=== PATIENT | male | born 1940 | race Caucasian/White ===

== ENCOUNTER 2017-08-27 04:21 | Emergency (ER) | END 2017-08-27 08:10 | disposition home or self-care (01) ==

== ENCOUNTER 2017-09-25 06:27 | Emergency (ER) | END 2017-09-25 08:40 | disposition left against medical advice (07) ==

== ENCOUNTER 2017-10-12 01:47 | Emergency (ER) | END 2017-10-12 05:38 | disposition home or self-care (01) ==

== ENCOUNTER 2018-09-22 21:59 | Emergency (ER) | payer OTHER, MEDICAID ==
[~2018-09-22] VITALS: Wt 62.2 kg
[~2018-09-22 21:59] MED LIST: ATOR20TA38 PO; CEPH-443 PO; FAMO-96 PO; GLIP10TA14 PO; HYDR-4011 PO; IBUP-1542 PO; LOSA25TA12 PO; METF500T24 PO; METO-448 PO; SULF1TAB31 PO
[2018-09-22] MEDS ORDERED: SODIUM CHLORIDE 0.9% 1L BAG IV* STA (23:32)
--- NOTE | 2018-09-22 23:48 | ERD ---
ER Documentation Chief Complaint Chief Complaint COUGH, FEVER X'S 3 DAYS HPI 77-year-old man complains of cough and nasal congestion rhinorrhea times 2 days with tactile fever as well. He has had no chest pain or shortness of breath, no rash, no vomiting or diarrhea, no headache or blurry vision. Patient has a history of esophageal cancer treated 2 years ago with chemotherapy. ROS All systems reviewed and are negative except as per history of present illness. Medications Home Meds Active Scripts Albuterol Sulfate* (Proair HFA*) 8.5 Gm Hfa.aer.ad, 2 PUFF INH Q6H PRN for WHEEZING AND SOB, #1 INHALER Prov:ROSE MITCHELL MD 09/23/18 Ibuprofen* (Motrin*) 400 Mg Tab, 400 MG PO Q8 PRN for FEVER, #30 TAB Prov:ROSE MITCHELL MD 09/23/18 Sulfamethoxazole/Trimethoprim* (Bactrim Ds* Tablet) 1 Each Tablet, 1 TAB PO BID, #19 TAB Prov:SHANT ROY NP 10/12/17 Ibuprofen* (Motrin*) 600 Mg Tab, 600 MG PO Q6H PRN for PAIN AND OR ELEVATED TEMP, #30 TAB Prov:SHANT ROY NP 10/12/17 Cephalexin* (Keflex*) 500 Mg Capsule, 500 MG PO QID for 10 Days, #39 CAP Prov:SHANT ROY NP 10/12/17 Famotidine* (Pepcid*) 20 Mg Tablet, 20 MG PO BID for 7 Days, TAB Prov:VERENA BETANCOURT MD 08/27/17 Reported Medications Hydrocodone/Acetaminophen ([place] 5-325 Tablet) 1 Each Tablet, 1 EACH PO Q6 PRN for PAIN LEVEL 6-10, TAB 08/27/17 Metoprolol Tartrate* (Lopressor*) 25 Mg Tab, 12.5 MG PO BID, #60 TAB TAKE 0.5 TABLET BY MOUTH 2 TIMES A DAY 08/27/17 Metformin Hcl* (Metformin Hcl*) 500 Mg Tablet, 500 MG PO WITH BREAKFAST DINNE, #60 TAB 08/27/17 Losartan Potassium* (Losartan Potassium*) 25 Mg Tablet, 25 MG PO QPM, TAB 08/27/17 Glipizide* (Glipizide*) 10 Mg Tablet, 10 MG PO AC BREAKFAST DINNER, TAB 08/27/17 Atorvastatin Calcium* (Atorvastatin Calcium*) 20 Mg Tablet, 20 MG PO QHS, #30 TAB 08/27/17 Allergies Allergies: Coded Allergies: No Known Allergy (Unverified , 08/27/17) PMhx/Soc Hypertension, hyperlipidemia, history of esophageal cancer History of Surgery: Yes (AAA(JANUARY 2017 AT [facility])) Anesthesia Reaction: No Hx Neurological Disorder: No Hx Respiratory Disorders: No Hx Cardiac Disorders: Yes (HTN, HYPERLIPIDEMIA, DM) Hx Psychiatric Problems: No Hx Miscellaneous Medical Probl: Yes (ESOPHOGEAL CANCER) Hx Alcohol Use: No Hx Substance Use: No Hx Tobacco Use: Yes (QUIT 15 YEARS AGO) Smoking Status: Former smoker FmHx Family History: No diabetes Physical Exam Vitals Vital Signs Date Temp Pulse Resp B/P (MAP) Pulse Ox O2 O2 Flow FiO2 Time Delivery Rate 09/23/18 96 20 95/65 (75) 97 Room Air 01:50 09/22/18 98.9 23:39 09/22/18 102.4 119 20 124/65 94 22:31 (84) Physical Exam GENERAL: Well-developed, well-nourished, febrile HEENT: Moist mucous membranes, pink conjunctiva, no cervical spine tenderness or step-off deformities, no goiter, no jaundice or icterus, extraocular movements intact without pain. No submandibular induration, and no pharyngeal erythema NEURO: Alert and oriented 3, cranial nerves II through XII intact bilaterally, pupils equal round reactive to light, no focal deficits or facial asymmetry, sensation intact distally Strength 5/5 in upper and lower extremities bilaterally CARDIAC: Tachycardic and regular no murmurs rubs or gallops LUNGS: Clear bilaterally no wheezing crackles or stridor ABDOMEN: Soft nontender, no guarding, no rigidity, no rebound, no psoas sign no obturator sign. Normoactive bowel sounds SKIN: Warm and dry to touch, no abrasions, contusions, or hematomas, no lacerations, no ecchymosis, no target lesions, and without ulcers EXTREMITIES: No clubbing cyanosis or edema, calves are bilaterally symmetrical, no Homans sign, no popliteal cord sign. Distal pulses equal and bilateral PSYCH: Normal affect without agitation or irritability Result Diagram: 3/29/19 2019 3/29/19 2342 Results 24 hrs Laboratory Tests Test 09/22/18 20:19 09/22/18 22:45 09/22/18 23:42 White Blood Count 9.7 10^3/ul Red Blood Count 5.21 10^6/ul Hemoglobin 15.4 g/dl Hematocrit 46.0 % Mean Corpuscular Volume 88.3 fl Mean Corpuscular Hemoglobin 29.6 pg Mean Corpuscular 33.5 g/dl Hemoglobin Concent Red Cell Distribution Width 13.8 % Platelet Count 147 10^3/UL Mean Platelet Volume 11.1 fl Immature Granulocytes % 0.600 % Neutrophils % 82.0 % Lymphocytes % 8.6 % Monocytes % 8.2 % Eosinophils % 0.3 % Basophils % 0.3 % Nucleated Red Blood Cells % 0.0 /100WBC Immature Granulocytes # 0.060 10^3/ul Neutrophils # 8.0 10^3/ul Lymphocytes # 0.8 10^3/ul Monocytes # 0.8 10^3/ul Eosinophils # 0.0 10^3/ul Basophils # 0.0 10^3/ul Nucleated Red Blood Cells # 0.0 10^3/ul Prothrombin Time 13.1 Sec Prothrombin Time Ratio 1.0 INR International 0.98 Normalized Ratio Activated Partial Thromboplast 33.7 Sec Time Lactic Acid Level 1.4 mmol/L Sodium Level 137 mmol/L Potassium Level 4.0 mmol/L Chloride Level 98 mmol/L Carbon Dioxide Level 27 mmol/L Anion Gap 12 Blood Urea Nitrogen 22 mg/dl Creatinine 1.13 mg/dl Est Glomerular Filtrat mL/min Rate mL/min Glucose Level 126 mg/dl Calcium Level 9.8 mg/dl Total Bilirubin 0.5 mg/dl Direct Bilirubin 0.00 mg/dl Indirect Bilirubin 0.5 mg/dl Aspartate Amino Transf (AST/SGOT) 19 IU/L Alanine 16 IU/L Aminotransferase (ALT/SGPT) Alkaline Phosphatase 73 IU/L Troponin I < 0.012 ng/ml Total Protein 7.2 g/dl Albumin 4.2 g/dl Globulin 3.00 g/dl Albumin/Globulin Ratio 1.40 Lipase 70 U/L Current Medications Medications Dose Sig/Peyman Start Time Status Last (Trade) Ordered Route PRN Stop Time Admin Dose Reason Admin Sodium 2,000 ml BOLUS OVER 2 09/22/18 DC 09/22/18 Chloride HOURS STAT 23:32 23:41 (NS) IV* 09/22/18 23:34 Ibuprofen 600 mg ONCE ONCE 09/23/18 DC 09/22/18 (Motrin) PO 00:00 23:39 09/23/18 00:01 Ceftriaxone 50 ml @ ONCE ONCE 09/23/18 DC 09/23/18 Sodium 100 mls/hr IVPB 00:00 00:30 09/23/18 00:29 Procedures/MDM IV line was established patient was placed on traveling inventory associate rhythm strip revealed a sinus tachycardia at 120 bpm with upright P and T waves. Patient was febrile. Blood and urine cultures have been ordered results are pending I will follow-up. Chest X-ray 1V Interpreted by me: Soft Tissue: No acute abnormalities Bones: No acute abnormalities Mediastinum/Cardiac Silhouette/Lungs: No acute abnormalities I administered 2 L normal saline IV, ibuprofen 600 mg p.o. for fever, cef triaxone 1 g IV. EKG performed, read by me revealed a normal sinus rhythm at 98 bpm, normal axis, narrow QRS complex, no concerning ST elevations or depressions noted CBC and electrolytes were normal, liver function tests were normal, troponin was negative, lactic acid level was low and I do not suspect sepsis. Influenza AB swabs were negative. Patient's vital signs are normal at this time and he feels much better, oxygen saturation was within normal limits and he would like to be discharged. I suspect viral upper respiratory tract infection and outpatient instructions and follow-up recommendations were provided to him and his who was at the bedside. Differential diagnoses considered, included but not limited to acute coronary syndrome, pulmonary embolism, aortic dissection, abdominal aortic aneurysm, sepsis, stroke, meningitis, encephalitis, pneumonia, appendicitis, cholecyst itis, bowel obstruction, pyelonephritis, nephrolithiasis, cystitis, as well as metabolic, hematologic, and electrolyte abnormalities. As well as abscess, cellulitis, fractures, and dislocations. Patient feels much better at this time, and vital signs are normal, symptoms have improved. I did give strict instructions to return to the ED if symptoms continue or worsen, patient will otherwise follow-up with primary care physician. Patient understood instructions and agreed to plan. Disclaimer: Inadvertent spelling and grammatical errors are likely due to EHR/dictation software use and do not reflect on the overall quality of patient care. Also, please note that the electronic time recorded on this note does not necessarily reflect the actual time of the patient encounter. Departure Diagnosis: Primary Impression: Viral URI Condition: ROSE Mejia MD Sep 22, 2018 23:48
[2018-09-23] MEDS ORDERED: CEFTRIAXONE 1 GM/50 ML (PMX) 50 ML IVPB ONE
[2018-09-23] MEDS ORDERED: IBUPROFEN 600 MG TAB PO ONE
[2018-09-23] MEDS ORDERED: IBUP-1561 PO (01:34)
[2018-09-23] MEDS ORDERED: ALBU8.5H8 INH (01:34)
[2018-09-23 01:50] VITALS: BP 95/65; PULSE 96; RESP 20
== END 2018-09-23 02:00 | disposition home or self-care (01) ==
LOC: E/R 21:59
DX: J06.9 Acute upper respiratory infection, unspecified (principal); I10 Essential (primary) hypertension; E11.9 Type 2 diabetes mellitus without complications; Z79.84 Long term (current) use of oral hypoglycemic drugs; Z85.01 Personal history of malignant neoplasm of esophagus; Z87.891 Personal history of nicotine dependence
CPT/HCPCS: 36415; 71045; 80053; 83605; 83690; 84484; 85025; 85610; 85730; 87040; 87400; 93005; 96374; 99285; J0696; J7030